=== PATIENT | male | born 1945 | race Caucasian/White ===

== ENCOUNTER 2020-06-24 11:06 | Inpatient (IN) ==
--- NOTE | 2020-06-23 09:15 | Anesthesiology Consultation ---
Date of Service June 23, 2020 Assessment & Plan (1) Encounter for pre-operative examination: Chart Review Chart Review: Acceptable Risk for Surgery and Patient NOT seen in Pre Admission Testing - Check BSG AM DOS Pt initially seen in [facility] on 05/19/20- surgery rescheduled secondary to Covid surge. Per nursing assessment 06/23/2020, patient denies any recent travel. No known Covid infection in the past 90 days. No known Covid positive contacts or Covid related symptoms. Preop Covid testing 06/17/2020 = negative History Surgery Operation Date: 06/24/20 12:25 Proposed Procedures p L4-S1 Decompression and Fusion, Possible L3-L4, Spinal Cord Monitoring - Gr vasquez Andujar, Height/Weight Height: 5 ft 9 in Weight: 92.533 kg Allergies Allergy/AdvReac Type Severity Reaction Status Date / Time erythromycin base Allergy Severe Chest Verified 06/23/20 09:03 tightness chlordiazepoxide AdvReac Mild Irritabilit Verified 06/23/20 09:03 [From Librium] y Medications Home Medications Medication Instructions Recorded Confirmed Last Taken Glutathione Otc 500 mg PO QAM 05/05/20 06/23/20 Unknown acetaminophen-codeine 1 tab PO Q6H PRN 05/05/20 06/23/20 Unknown [Tylenol-Codeine #3] aspirin [Aspir-81] 81 mg PO HS 05/05/20 06/23/20 Unknown baclofen 10 mg PO TID PRN 05/05/20 06/23/20 Unknown chlorzoxazone 500 mg PO TID PRN 05/05/20 06/23/20 Unknown lisinopril 10 mg PO QAM 05/05/20 06/23/20 Unknown metformin 750 mg PO PM 05/05/20 06/23/20 Unknown simvastatin 10 mg PO PM 05/05/20 06/23/20 Unknown vit C,L-Bg-vfijv-lutein-zeaxan 1 tab PO BID 05/05/20 06/23/20 Unknown [PreserVision AREDS-2] Chlor-Tablet 1 tab PO DAILY 05/17/20 06/23/20 Unknown Past Medical History Medical History Arthritis Chronic back pain Deviated septum Diabetes mellitus, type 2 NIDDM Hyperlipidemia Leukemia CLL (dx 2013) > stable under annual surveillance with oncology (Dr. Cline/[facility]/[place]) Trigger finger right hand Past Family History Family History Grandfather (Paternal) Family history of diabetes mellitus Past Surgical History Surgical History History of adenoidectomy History of colonoscopy History of hand surgery Right History of herniorrhaphy R/L History of knee surgery R/L (ligament repair) History of nasal septoplasty History of repair of rotator cuff Left History of tonsillectomy Social History Smoking Status: Never smoker Hx Alcohol Use: Yes Alcohol type: beer, wine and hard liquor alcohol intake frequency: holidays/special occasions only Hx Substance Use: No Testing Laboratory Results Laboratory Tests 05/17/20 05/17/20 05/17/20 12:15 12:15 12:15 WBC 22.41 H Hgb 16.7 Hct 49.7 Plt Count 149 PT 10.9 INR 1.0 APTT 26.5 Sodium 138 Potassium 4.8 Chloride 105 Carbon Dioxide 27 BUN 17 Creatinine 1.10 Glucose 160 H Hemoglobin A1c 05/17/20 12:15 WBC Hgb Hct Plt Count PT INR APTT Sodium Potassium Chloride Carbon Dioxide BUN Creatinine Glucose Hemoglobin A1c 8.8 H Per anesthesia consultation from 05/17/20= "Patient with known hx of CLL- per verbal from [facility], patient's baseline WBC in the low to mid 20's since 2015. CBC report forwarded to oncology for continuity of care." 05/17/2020 = UA: Negative T&S: A+, antibody negative Electrocardiogram Date: 05/17/20 SR with first degree AVB with PAC's at 79bpm. RBBB. LAFB. *Bifascicular block* (Bifascicular block chronic dating back to at least 09/10/2011 [facility] EKG) Chest X-Ray Date: 05/17/20 FINDINGS: Cardiomediastinal and hilar silhouettes are within normal limits. Calcified plaque of the thoracic aorta. Mild interstitial coarsening of the lung bases, possibly on a chronic basis. No pneumothorax, pleural effusion, overt pulmonary edema or airspace consolidation to suggest pneumonia. Degenerative changes of the shoulders and spine. IMPRESSION: No acute process.
[~2020-06-24 11:06] MED LIST: ACETAMINOPHEN 500 MG TAB PO SCH; CeleBREX 200 MG CAP PO SCH; GABAPENTIN 300 MG CAP PO SCH; LR 15ML/HR IV SCH; ceFAZolin 2000MG 2,000 MG/15 ML SYR IV SCH
[2020-06-24] MEDS ORDERED: GLYCOPYRROLATE 0.2 MG/ML VIAL ONE (11:44)
[2020-06-24] MEDS ORDERED: ONDANSETRON INJ 2 MG/ML 2 ML VIAL ONE (11:44)
[2020-06-24] MEDS ORDERED: PROPOFOL IV EMULSION 10 MG/ML 20 ML VIAL IV ONE (11:44)
[2020-06-24] MEDS ORDERED: NEOSTIGMINE METHYLSULFATE 1 MG/ML 10ML VIAL ONE (11:44)
[2020-06-24] MEDS ORDERED: LIDOCAINE 2% 2 ML VIAL/AMP(20MG/ML) INFIL ONE (11:44)
[2020-06-24] MEDS ORDERED: DEXAMETHASONE SOD INJ 4 MG/ML VIAL ONE (11:44)
[2020-06-24] MEDS ORDERED: MIDAZOLAM HCL 1 MG/ML 2ML VIAL ONE (11:45)
[2020-06-24] MEDS ORDERED: fentaNYL citrate 100 MCG/2 ML VIAL ONE ×3 (11:45→15:28)
--- NOTE | 2020-06-24 12:01 | History & Physical Bridge Note ---
Date of Service June 24, 2020 History & Physical Bridge Note I have examined the patient, reviewed the History & Physical and in the interval since the performance of the History & Physical I have noted the following changes of clinical significance: no changes noted
--- NOTE | 2020-06-24 12:02 | History & Physical Report ---
Date of Service June 24, 2020 Assessment & Plan (1) Neurogenic claudication due to lumbar spinal stenosis: Admission and Anticipated Discharge Date Admission Date: L4-S1 decompression fusion, possible L3-L4 History of Present Illness Chief Complaint: Back and bilateral leg pain Primary Care Provider: Yan Salas This is a 75-year-old male who presents with above-mentioned diagnosis after failing course of nonoperative care is here for surgical intervention. Allergies Allergy/AdvReac Type Severity Reaction Status Date / Time erythromycin base Allergy Severe Chest Verified 06/23/20 09:03 tightness chlordiazepoxide AdvReac Mild Irritabilit Verified 06/23/20 09:03 [From Librium] y Home Medications Medication Instructions Recorded Confirmed Type Glutathione Otc 500 mg PO QAM 05/05/20 06/23/20 History acetaminophen-codeine 1 tab PO Q6H PRN 05/05/20 06/23/20 History [Tylenol-Codeine #3] aspirin [Aspir-81] 81 mg PO HS 05/05/20 06/23/20 History baclofen 10 mg PO TID PRN 05/05/20 06/23/20 History chlorzoxazone 500 mg PO TID PRN 05/05/20 06/23/20 History lisinopril 10 mg PO QAM 05/05/20 06/23/20 History metformin 750 mg PO PM 05/05/20 06/23/20 History simvastatin 10 mg PO PM 05/05/20 06/23/20 History vit C,N-Ta-idqmv-lutein-zeaxan 1 tab PO BID 05/05/20 06/23/20 History [PreserVision AREDS-2] Chlor-Tablet 1 tab PO DAILY 05/17/20 06/23/20 History Past Med/Surg History Medical History Arthritis Chronic back pain Deviated septum Diabetes mellitus, type 2 NIDDM Hyperlipidemia Leukemia CLL (dx 2012) > stable under annual surveillance with oncology (Dr. Cline/[facility]) Trigger finger right hand Surgical History History of adenoidectomy History of colonoscopy History of hand surgery Right History of herniorrhaphy R/L History of knee surgery R/L (ligament repair) History of nasal septoplasty History of repair of rotator cuff Left History of tonsillectomy Family History Grandfather (Paternal) Family history of diabetes mellitus Social History Smoking Status: Never smoker Second Hand Exposure: Yes (PARENTS SMOKED/AT WORK (PAST EXPOSURE)); Hx Alcohol Use: Yes Alcohol type: beer, wine and hard liquor Hx Substance Use: No Preferred Language: Syrian Communication Ability: Effective Graduate Research Assistant Required: No Beliefs That Will Affect Care: None Current Living Situation: Spouse Feels Safe at Home: Yes Safety Concerns: Feels Safe At This Time Assistive Devices: Glasses Physical Exam Physical Exam: Patient is alert and oriented Heart regular rate and rhythm Lungs clear to auscultation
[2020-06-24] MEDS ORDERED: BUPIVACAINE/EPINEPHRINE 0.5% MPF 1:200,000 30 ML VIAL ONE (12:20)
[2020-06-24] MEDS ORDERED: BACITRACIN INJ 50,000 UNIT VIAL ONE (12:20)
[2020-06-24] MEDS ORDERED: fentaNYL citrate 100 MCG/2 ML VIAL IV PRN (12:59)
[2020-06-24] MEDS ORDERED: ATROPINE SULFATE 0.1 MG/ML 10ML SYR IV PRN (12:59)
[2020-06-24] MEDS ORDERED: ePHEDrine sulfate 50 MG/ML AMP IV PRN (12:59)
[2020-06-24] MEDS ORDERED: ONDANSETRON INJ 2 MG/ML 2 ML VIAL IV PRN ×2 (12:59→16:52)
[2020-06-24] MEDS ORDERED: ROCURONIUM BROMIDE 10 MG/ML 5 ML VIAL IV ONE ×4 (14:27)
[2020-06-24] MEDS ORDERED: FLOSEAL HEMOSTATIC MATRIX 10ML TOP ONE (14:50)
--- NOTE | 2020-06-24 15:32 | Operative Report ---
Post Operative Report Pre & Post Diagnosis Operation Date: 06/24/20 12:25 Pre-Op Diagnosis: Spinal Stenosis, Lumbar Region with Neurogenic Post-Op Diagnosis: Spinal Stenosis, Lumbar Region with Neurogenic I identified the patient and participated in the time-out.: Yes Procedure Operation Date: 06/24/20 12:25 Actual Procedures #1 Lumbar decompression with bilateral medial facetectomies and foraminotomies L3-4, L4-5 and L5-S1. #2 posterior spinal fusion L3-4, L4-5 and L5-S1. #3 patient posterior instrumentation L4-5 and L5-S1. #4 interbody fusion L4-5 and L5-S1. #5 placement peek cage 13 x 26 mm at L4-5 and 12 x 26 mm at L5-S1 peer #6 placement locally harvested morselized autograft in the posterior gutters per #7 placement use collagen sponge, master graft in the posterior lateral gutters and ostial amp interbody space. Surgeon Corona Andujar, DO Horticultural Technical Officer Mike Snow Estimated Blood Loss 250 Findings See Below Patient is 5 foot 9 inches tall weighing over 95 kg with a BMI in excess of 31. The patient's body habitus did add significant technical difficulty requiring her deepest retractors longus instruments in order to perform his procedure. This had at least 50% increase to the operative time. Specimens None Indications This is a 75-year-old male who presents above-mentioned diagnosis after failing course of nonoperative care is here for the above-mentioned procedure. Description of Procedure Patient was met with identified informed consent obtained. Patient was then taken to the operative suite underwent a patient placed in a prone position Guevara table top Alfa frame. All bony prominences well-padded eyes inspected to ensure no external pressure placed upon the. This point the lumbar spine was prepped and draped in a sterile fashion. Sharp dissection with the assistance of Bovie cautery was formed down to and exposing the lamina and transverse processes of L3-L4-L5 and sacral ala bilaterally. From caudal to cephalad fashion complete laminectomy L5 L4 and L3 was performed including bilateral medial facetectomies and foraminotomies addressing severe spinal stenosis. Pedicle screws were then placed in L4-L5 and the S1 levels bilaterally with assistance of fluoroscopy and appropriate sized floridalma placed. By way of a transfemoral approach on the left complete discectomy of L5-S1 was performed endplates curetted to subcortical bleeding bone and a 12 x 26 mm peek cage filled with osteobone graft tapped in position. Then proceeded L4 and L5. Again by way of a transforaminal approach and left complete discectomy performed endplates curetted to subcortical being bone and a 13 x 26 mm peek cage filled osteobone graft tapped in position. The rods were then locked in final position bilaterally. The transverse processes of L4-L5 and sacral ala were then burred to subcortical bleeding bone. Infuse collagen sponge master graft local autograft was placed in the posterior gutters. 15 round KYLEE drain inserted. The incision was then closed with 1 Vicryl the fascia 2-0 Vicryl subcutaneously and 4 Monocryl for final skin closure. Steri-Strip sterile dressings placed. Patient will continue PACU stable condition. Please note spinal cord monitoring was utilized at the procedure no changes noted. Coral Snow was present throughout the entire procedure involved the patient positioning complex portions of the surgery and final skin closure. I attest to the content of the Intraoperative Record and any orders documented therein. Any exceptions are noted below.
--- NOTE | 2020-06-24 15:36 | Fluoroscopy Report ---
FL lumbar spine 2-3V CLINICAL HISTORY: L4-S1 PSF, COMPARISON STUDY: FLUOROSCOPY TIME: 25 seconds. NUMBER OF FLUOROSCOPIC IMAGES: 4 FINDINGS: 4 intraoperative fluoroscopic spot images reveal postsurgical changes of an L4-5 and L5-S1 discectomies interbody fusion with posterior pedicle screw fixation. IMPRESSION: Fluoroscopic spot images demonstrating an L4-S1 spinal decompression and fusion. ACT 112: Negative or not required by law. Electronically signed by: Maximiliano Ellsworth M.D. 06/24/2020 3:35 PM
--- NOTE | 2020-06-24 16:42 | Anesthesiology Progress Note ---
Date of Service June 24, 2020 Anesthesia Post Procedure Vital Signs Vital Signs: Temp Pulse Pulse Resp BP BP Pulse Ox 06/24/20 16:35 97.5 F L 79 16 152/89 H 93 06/24/20 16:25 97.5 F L 78 16 144/97 H 94 06/24/20 16:15 76 17 144/97 H 95 06/24/20 16:05 77 25 H 145/84 H 94 06/24/20 15:56 97.0 F L 82 14 162/96 H 95 06/24/20 12:07 97.9 F 79 18 146/89 H 97 Transfer of Care Handoff Completed per policy Notes Mental Status: alert / awake / arousable and participated in evaluation Patient Amnestic to Procedure: Yes Nausea / Vomiting: adequately controlled Pain: adequately controlled Airway Patency, RR, SpO2: stable & adequate BP & HR: stable & adequate Hydration State: stable & adequate Anesthetic Complications: no major complications apparent and Pt Satisfied with anesthetic care
[2020-06-24] MEDS ORDERED: DO NOT ADMINISTER FLU VACCINE PRN (16:52)
[2020-06-24] MEDS ORDERED: FAMOTIDINE 20 MG TAB PO PRN (16:52)
[2020-06-24] MEDS ORDERED: oxyCODONE HCL IR 5 MG TAB (IMMEDIATE RELEASE) PO PRN (16:52)
[2020-06-24] MEDS ORDERED: MAGNESIUM HYDROXIDE SUSP 30 ML UDC PO PRN (16:52)
[2020-06-24] MEDS ORDERED: PROMETHAZINE HCL 12.5 MG in SODIUM CHLORIDE 0.9% 50 ML IV PRN (16:52)
[2020-06-24] MEDS ORDERED: diphenhydrAMINE Capsule 25 MG CAP PO PRN (16:52)
[2020-06-24] MEDS ORDERED: hydrOXYzine HCl 25 MG TAB PO PRN (16:52)
[2020-06-24] MEDS ORDERED: ALUMINUM/MAGNESIUM SUSP 30 ML UDC PO PRN (16:52)
[2020-06-24] MEDS ORDERED: NALOXONE HCL 0.4 MG/1 ML VIAL/CARP IV PRN (16:52)
[2020-06-24] MEDS ORDERED: ACETAMINOPHEN 1,000 MG/100 ML VIAL IV PRN (16:52)
[2020-06-24] MEDS ORDERED: HYDROmorphone INJ 1 MG/ML SYRINGE IV PRN (16:52)
[2020-06-24] MEDS ORDERED: CHLORZOXAZONE 500 MG TAB PO PRN (16:52)
[2020-06-24] MEDS ORDERED: ONDANSETRON 4 MG OD TAB PO PRN (16:52)
[2020-06-24] MEDS ORDERED: LORazepam 0.5 MG/1 ML VIAL IV PRN (16:52)
[2020-06-24] MEDS ORDERED: HYDROmorphone INJ 0.5 MG/0.5 ML SYR IV PRN (16:52)
[2020-06-24] MEDS ORDERED: SOD PHOSPHATE/SOD BIPHOSPHATE ENEMA 132 ML BTL PR PRN (16:52)
[2020-06-24] MEDS ORDERED: LORazepam 0.5 MG TAB PO PRN (16:52)
[2020-06-24] MEDS ORDERED: DO NOT ADMINISTER PNEUMOCOCCAL VACCINE PRN (16:52)
[2020-06-24] MEDS ORDERED: METOCLOPRAMIDE HCL INJ 5 MG/ML 2 ML VIAL IV PRN (16:52)
[2020-06-24] MEDS: SODIUM CHLORIDE 0.9% 1000ML 1,000 ML IV SCH (17:08)
[2020-06-24] MEDS ORDERED: GLUCOSE 40% GEL 15 GM TUBE PO PRN (17:15)
[2020-06-24] MEDS ORDERED: GLUCOSE 10 TABS/TUBE PO PRN (17:15)
[2020-06-24] MEDS ORDERED: CARBOHYDRATES FOR HYPOGLYCEMIA PO PRN (17:15)
[2020-06-24] MEDS ORDERED: GLUCAGON FOR INJ 1 MG VIAL IM PRN (17:15)
[2020-06-24] MEDS ORDERED: DEXTROSE 50% 50 ML SYRINGE IV PRN (17:15)
[2020-06-24] MEDS ORDERED: PHARMACY GLYCEMIC MGMT CONSULT PRN (17:28)
[2020-06-24] MEDS ORDERED: INSULIN GLARGINE SOLOSTAR 100 UNITS/ML 3 ML PEN SC ONE ×2 (17:30→22:00)
[2020-06-24] MEDS: INSULIN ASPART 100 UNITS/ML 3 ML PEN SC SCH ×2 (17:34→21:05)
--- NOTE | 2020-06-24 18:03 | Hospitalist Consultation ---
Date of Consultation June 24, 2020 Assessment & Plan (1) Neurogenic claudication due to lumbar spinal stenosis: - POD#0 L3-L4, L4-L5, L5-S1 decompression and fusion by Dr. Andujar - activity and wound care orders as per ortho - pain control with bowel regimen - PT/OT - monitor H/H for acute blood loss anemia and transfuse blood products PRN -EBL 250 cc (2) Diabetes mellitus, type 2: -Hgb A1c 8.8 04/2020 -Managed on Metformin at home -Glycemic pharmacy consult placed by spine orthopedics (3) HTN (hypertension): -BP controlled, continue lisinopril (4) CLL (chronic lymphocytic leukemia): -Stable, WBC 22K 04/2020 -Monitor CBC (5) DVT prophylaxis: -TEDs/SCDs as per spine orthopedics Thank you for this consultation. We will follow the patient with you during their hospital stay. You can reach a member of the [facility] Hospitalist Team 19/11 via pager @ [phone]. Supervising Physician Co-Signing Physician Notes Attending addendum: The patient was seen and examined in medical floor He is a status post L4-S1 decompression and fusion Denies any symptoms following surgery Remains hemodynamically stable On examination No apparent distress at rest Chestclear to auscultate bilaterally HeartS1-S2 regular, no murmur Abdomenbenign, bowel sounds present CNSalert, awake and oriented x3. No focal sensory and motor deficit appreciated Extremitiesno edema Is labs, imaging studies and EKG reviewed Is a status post L5-S1 decompression fusionmanagement as per surgery His medical condition including diabetes type 2, hypertension and CLL remains stable Agree with assessment and plan as outlined above by Augusta Fernando History of Present Illness Reason for Consultation: Postop medical management Requesting Physician: Dr. Andujar Attending Physician: Dr. Fernando History of Present Illness 75-year-old male with PMH HTN, NIDDM, CLL, dyslipidemia, and other problems listed below who is status post L3-L4, L4-L5, L5-S1 decompression and fusion today by Dr. Andujar. Postoperatively, the patient is doing well. He reports his pain is well controlled. Denies numbness, tingling, weakness to lower extremities. No chest pain or shortness of breath. Denies lightheadedness and dizziness. No abdominal pain or nausea. Solomon catheter is in place draining clear yellow urine. Allergies Allergy/AdvReac Type Severity Reaction Status Date / Time erythromycin base Allergy Severe Chest Verified 06/24/20 12:06 tightness chlordiazepoxide AdvReac Mild Irritabilit Verified 06/24/20 12:06 [From Librium] y Home Medications Medication Instructions Recorded Confirmed Type Glutathione Otc 500 mg PO QAM 05/05/20 06/24/20 History acetaminophen-codeine 1 tab PO Q6H PRN 05/05/20 06/24/20 History [Tylenol-Codeine #3] aspirin [Aspir-81] 81 mg PO HS 05/05/20 06/24/20 History chlorzoxazone 500 mg PO TID PRN 05/05/20 06/24/20 History lisinopril 10 mg PO QAM 05/05/20 06/24/20 History metformin 750 mg PO PM 05/05/20 06/24/20 History simvastatin 10 mg PO PM 05/05/20 06/24/20 History vit C,T-Zb-pvqby-lutein-zeaxan 1 tab PO BID 05/05/20 06/24/20 History [PreserVision AREDS-2] Chlor-Tablet 1 tab PO DAILY 05/17/20 06/24/20 History Patient History Medical History Arthritis Chronic back pain Deviated septum Diabetes mellitus, type 2 NIDDM Dyslipidemia HTN (hypertension) Hyperlipidemia Leukemia CLL (dx 2012) > stable under annual surveillance with oncology (Dr. Cline/[facility]/[place]) Trigger finger right hand Surgical History History of adenoidectomy History of colonoscopy History of hand surgery Right History of herniorrhaphy R/L History of knee surgery R/L (ligament repair) History of nasal septoplasty History of repair of rotator cuff Left History of tonsillectomy Family History Grandfather (Paternal) Family history of diabetes mellitus Social History Smoking Status: Never smoker Second Hand Exposure: Yes (PARENTS SMOKED/AT WORK (PAST EXPOSURE)); Hx Alcohol Use: Yes Alcohol type: beer, wine and hard liquor Hx Substance Use: No Preferred Language: Czech Communication Ability: Effective Paper Sales Representative Required: No Beliefs That Will Affect Care: None Current Living Situation: Spouse Feels Safe at Home: Yes Safety Concerns: Feels Safe At This Time Assistive Devices: Glasses and Walker Review of Systems Review of Systems: ROS per HPI, all other systems reviewed and negative Physical Exam Constitutional: WD/WN, vitals as above Eyes: PERRL, conjunctivae normal, anicteric sclerae ENMT: external ear and nose normal, oropharynx normal Respiratory: normal respiratory effort, lungs clear to auscultation Cardiovascular: Rate/Rhythm: regular rate and regular rhythm Vessels: normal peripheral pulses Extremities: no edema Gastrointestinal (Abdomen): normal bowel sounds, soft, nontender, no hepatosplenomegaly Musculoskeletal: no cyanosis or clubbing, extremities motor strength 5/5 S/p back surgery, drain in place draining bloody drainage, pedal pushes and pulls strong bilaterally Skin: no rashes, warm and dry Neurologic: PERRL, EOMI, accommodation nl, no face palsy, no dysarthria Psychiatric: A+Ox3, euthymic affect Genitourinary: Solomon catheter in place draining clear yellow urine Results & Data Results & Data ([facility]) Vital Signs (Past 12 Hours) Vital Signs Temp Pulse Pulse Resp BP BP Pulse Ox 06/24/20 17:58 36.7 C 81 17 124/78 93 06/24/20 17:25 73 16 140/99 92 06/24/20 16:55 36.7 C 78 16 143/83 H 91 06/24/20 16:45 36.4 C L 77 17 127/78 93 06/24/20 16:35 36.4 C L 79 16 152/89 H 93 06/24/20 16:25 36.4 C L 78 16 144/97 H 94 06/24/20 16:15 76 17 144/97 H 95 06/24/20 16:05 77 25 H 145/84 H 94 06/24/20 15:56 36.1 C L 82 14 162/96 H 95 06/24/20 12:07 36.6 C 79 18 146/89 H 97
[2020-06-24] MEDS: CEROVITE ADV FORMULA TAB PO SCH (20:58)
[2020-06-24] MEDS: SIMVASTATIN 10 MG TAB PO SCH (20:58)
[2020-06-24] MEDS: ASPIRIN 81 MG ECTAB PO SCH (20:58)
[2020-06-24] MEDS: DOCUSATE SODIUM/SENNA 50/8.6MG TAB PO SCH (20:58)
[2020-06-24] MEDS: ceFAZolin 2000MG 2,000 MG/15 ML SYR IV SCH (21:07)
[2020-06-25] MEDS: INSULIN ASPART 100 UNITS/ML 3 ML PEN SC SCH ×6 (00:07→20:52)
[2020-06-25] MEDS: ceFAZolin 2000MG 2,000 MG/15 ML SYR IV SCH (04:23)
[2020-06-25] MEDS: SODIUM CHLORIDE 0.9% 1000ML 1,000 ML IV SCH (04:25)
[2020-06-25 06:56] LABS: Hematocrit (blood only) 43.4 % (42-52); Hemoglobin 14.6 g/dL (14.0-18.0); Mean Corpuscular Hemoglobin 28.5 pg (25-34); Mean Corpuscular Hgb Conc 33.6 g/dL (32-36); Mean Corpuscular Volume 84.6 fL (80-100); Mean Platelet Volume 10.8 fL (7.4-10.4); Platelet Count 207 K/uL (130-400); RDW Coefficient of Variation 14.4 % (11.5-14.5); RDW Standard Deviation 44.2 fL (36.4-46.3); Red Blood Count 5.13 M/uL (4.7-6.1); White Blood Count 39.84 K/uL (4.8-10.8)
[2020-06-25] MEDS ORDERED: SODIUM CHLORIDE 0.65% NA SOLN 45 ML (OCEAN) PRN (07:06)
[2020-06-25 07:29] LABS: BUN Creatinine Ratio 10.1 (10-20); Calcium 8.8 mg/dl (8.5-10.1); Creatinine Clr Calc Pharmacy 55.6 ml/min; Est GFR (African American) 60.6; Est GFR (Non-African American) 52.3; Potassium 4.1 mmol/L (3.5-5.1)
[2020-06-25 07:30] LABS: Basophils # (auto) 0.04 K/uL (0-0.2); Basophils % (auto) 0.1 %; Immature Granulocytes # (auto) 0.13 K/uL (0.00-0.02); Immature Granulocytes % (auto) 0.3 %; Lymphocytes # (auto) 27.72 K/uL (1.2-3.4); Lymphocytes % (auto) 69.6 %; Monocytes # (auto) 1.57 K/uL (0.11-0.59); Monocytes % (auto) 3.9 %; Neutrophils # (auto) 10.38 K/uL (1.4-6.5); Neutrophils % (auto) 26.1 %; Smudge Cells Present
[2020-06-25] MEDS: ACETAMINOPHEN 500 MG TAB PO PRN ×2 (07:58→17:13)
[2020-06-25] MEDS: CEROVITE ADV FORMULA TAB PO SCH ×2 (07:58→20:22)
[2020-06-25] MEDS: lisinopril 10 MG TAB PO SCH (07:59)
[2020-06-25] MEDS: INSULIN GLARGINE SOLOSTAR 100 UNITS/ML 3 ML PEN SC SCH ×2 (08:29→20:51)
[2020-06-25] MEDS ORDERED: CHLOR PO SCH (09:00)
--- NOTE | 2020-06-25 09:41 | Pharmacy Report ---
Pharmacy Glycemic Short Note 2 - Date of Service June 25, 2020 - Glycemic Short BSG Results (Last 24 hours): 06/24/20 06/24/20 06/24/20 11:34 15:57 17:06 Glucose POC Glucose 154 H 191 H 241 H 06/25/20 06/25/20 06/25/20 00:05 04:00 06:34 Glucose 191 H POC Glucose 303 H* 212 H 06/25/20 08:05 Glucose POC Glucose 182 H OUTPATIENT ANTIDIABETIC REGIMEN: * Metformin ER 750 mg PO HS * HbA1c = 8.8% (05/17/20) ASSESSMENT: * 75 yo M admitted yesterday following a L4-S1 spinal decompression and fusion. Pharmacy was consulted postoperatively for glycemic management assistance. * Preoperative BSG was 154 mg/dL. Postoperative BSG was 241 mg/dL. * Patient did receive 8 mg IV Dexamethasone intraoperatively. There are no further steroid orders to my knowledge. * Lantus 25 units was given last evening postoperatively. BSG at bedtime went up to 248 mg/dL so patient was given another 10 units of Lantus. * Overnight, BSGs were 303-212 mg/dL. Fasting BSG this morning was 182 mg/dL, which is above goal range. * Will order Lantus based on a weight/stress of two for this morning. * Believe patient's insulin requirements will decrease throughout the day as steroids continue to wear off. If further steroid orders are entered by provider, will likely require more Lantus. * Continue with Novolog based on weight/stress of three to account for steroid induced hyperglycemia. Again, these parameters may need adjusted if patient is ordered further steroids by provider. PLAN FOR INPATIENT GLYCEMIC CONTROL: * Hold outpatient oral diabetes medications * Basal insulin * Lantus 35 units SQ (last evening) * Lantus 15 units SQ BID (starting this morning) * Bolus insulin * NovoLog per scale ACHS or Q6hrs while NPO * Goal Range: Low 110 mg/dL - High 140 mg/dL * Correction Factor: 15 mg/dL/unit * Nutritional / Prandial insulin per carb ratio of 1 unit per 6 grams CHO consumed PLAN FOR DISCHARGE: * HbA1c = 8.8% from April 2020. This is not at goal. Goal HbA1c based on this patient's age and comorbidities would be less than 8%. * Patient's Metformin was increased to 750 mg at bedtime in January 2020. * Recommend increasing Metformin ER to 1000 mg PO HS at discharge. Continue to titrate metformin dosing upwards as recommended. Dosage increases should be made in increments of 500 mg weekly, up to 2,000 mg/day PO, given in divided doses. Doses above 2000 mg/day may be better tolerated if divided and given 3 times per day with meals. Max: 2,550 mg/day PO, in divided doses. B12 supplementation may be necessary with terminal computer operator metformin.
[2020-06-25] MEDS: traMADol HCL 50 MG TABLET PO PRN ×2 (10:47→20:24)
--- NOTE | 2020-06-25 11:05 | Orthopedic Progress Note ---
Date of Service June 25, 2020 Assessment & Plan (1) Neurogenic claudication due to lumbar spinal stenosis: Admission and Anticipated Discharge Date Admission Date: June 24, 2020 At this time continue physical therapy monitor his KYLEE output anticipate disc harge home with home health Saturday Subjective Back pain controlled leg symptoms markedly improved. Physical Exam Physical Exam: Patient is good strength testing appears comfortable. Results & Data ([facility]) Vital Signs (Past 12 Hours) Vital Signs Temp Pulse Resp BP Pulse Ox 06/25/20 07:42 37.5 C 92 H 18 103/70 96 06/25/20 03:58 36.7 C 95 H 16 95/68 L 94
--- NOTE | 2020-06-25 12:14 | Anesthesiology Progress Note ---
Date of Service June 25, 2020 Anesthesia Post Procedure Vital Signs Vital Signs: Temp Pulse Pulse Resp BP BP Pulse Ox 06/25/20 07:42 37.5 C 92 H 18 103/70 96 06/25/20 03:58 36.7 C 95 H 16 95/68 L 94 06/24/20 22:14 36.6 C 95 H 14 132/83 95 06/24/20 19:55 36.5 C 88 14 127/79 93 06/24/20 18:49 36.5 C 78 17 134/79 92 06/24/20 17:58 36.7 C 81 17 124/78 93 06/24/20 17:25 73 16 140/99 92 06/24/20 16:55 36.7 C 78 16 143/83 H 91 06/24/20 16:45 36.4 C L 77 17 127/78 93 06/24/20 16:35 36.4 C L 79 16 152/89 H 93 06/24/20 16:25 36.4 C L 78 16 144/97 H 94 06/24/20 16:15 76 17 144/97 H 95 06/24/20 16:05 77 25 H 145/84 H 94 06/24/20 15:56 36.1 C L 82 14 162/96 H 95 Notes Mental Status: alert / awake / arousable Patient Amnestic to Procedure: Yes Nausea / Vomiting: adequately controlled Pain: adequately controlled Airway Patency, RR, SpO2: stable & adequate BP & HR: stable & adequate Hydration State: stable & adequate Anesthetic Complications: no major complications apparent and Pt Satisfied with anesthetic care
[2020-06-25] MEDS: POLYETHYLENE (MIRALAX) 17 GM PACK PO SCH ×3 (12:55→22:44)
--- NOTE | 2020-06-25 16:12 | Hospitalist Progress Note ---
Date of Service June 25, 2020 Assessment & Plan (1) Neurogenic claudication due to lumbar spinal stenosis: S/P L3-L4, L4-L5, L5-S1 decompression and fusion performed by Dr. Andujar on 06/24/20 No postop complication Continue pain control Continue physical and occupational therapy Fall precaution Continue incentive spirometry Monitor H/H (2) Diabetes mellitus, type 2: Hgb A1c 8.8 04/2020 Managed on Metformin at home that is on hold Pharmacy on board for glycemic management Continue monitor BS (3) HTN (hypertension): Continue lisinopril BP stable (4) CLL (chronic lymphocytic leukemia): WBC 39K today Continue monitor CBC (5) DVT prophylaxis: TEDs/SCDs as per spine orthopedics CODE status Full code Disposition as per ortho Thank you for this consultation. We will follow the patient with you during their hospital stay. You can reach a member of the [facility] Hospitalist Team 19/11 via pager @ [phone]. Admission and Anticipated Discharge Date Admission Date: June 24, 2020 Subjective Pt was seen and examined for postop follow up Lying in bed with no distress watching TV Pt said that pain is control He said that he walked in the hallway with therapy and tolerated well Denies any chest pain, palpitation, dizziness and SOB Physical Exam Physical Exam: General- No acute distress Head- atraumatic Eyes- PERRL, EOMI, ENT- oropharynx clear Neck- supple, no JVD Lungs- clear to auscultation Heart- regular rhythm; no murmur Abdomen- normal bowel sounds, soft, nontender Extremities- no calf tenderness Neuro- alert, oriented x 3; PERRL, EOMI; no facial palsy; no dysarthria Skin- warm & dry Results & Data Results & Data ([facility]) Vital Signs (Past 12 Hours) Vital Signs Temp Pulse Resp BP Pulse Ox 06/25/20 15:06 37.1 C 103 H 16 116/70 90 06/25/20 07:42 37.5 C 92 H 18 103/70 96
[2020-06-25] MEDS: ASPIRIN 81 MG ECTAB PO SCH (20:21)
[2020-06-25] MEDS: SIMVASTATIN 10 MG TAB PO SCH (20:21)
[2020-06-25] MEDS: DOCUSATE SODIUM/SENNA 50/8.6MG TAB PO SCH (20:22)
[2020-06-25] MEDS ORDERED: INSULIN GLARGINE SOLOSTAR 100 UNITS/ML 3 ML PEN SC ONE (21:45)
[2020-06-25] MEDS ORDERED: CETIRIZINE HCL 10 MG TABLET PO ONE (22:11)
[2020-06-26] MEDS: POLYETHYLENE (MIRALAX) 17 GM PACK PO SCH ×2 (05:59→12:48)
[2020-06-26] MEDS: traMADol HCL 50 MG TABLET PO PRN (06:03)
[2020-06-26 06:31] LABS: Hematocrit (blood only) 37.5 % (42-52); Hemoglobin 12.4 g/dL (14.0-18.0); Mean Corpuscular Hemoglobin 28.1 pg (25-34); Mean Corpuscular Hgb Conc 33.1 g/dL (32-36); Mean Platelet Volume 11.1 fL (7.4-10.4); Platelet Count 152 K/uL (130-400); RDW Standard Deviation 46.4 fL (36.4-46.3); Red Blood Count 4.41 M/uL (4.7-6.1); White Blood Count 23.33 K/uL (4.8-10.8)
[2020-06-26] MEDS: CEROVITE ADV FORMULA TAB PO SCH (08:13)
[2020-06-26] MEDS: lisinopril 10 MG TAB PO SCH (08:13)
[2020-06-26] MEDS: INSULIN ASPART 100 UNITS/ML 3 ML PEN SC SCH ×2 (08:21→12:49)
[2020-06-26] MEDS ORDERED: INSULIN GLARGINE SOLOSTAR 100 UNITS/ML 3 ML PEN SC SCH (09:00)
[2020-06-26] MEDS ORDERED: dexAMETHasone 8 MG in SYRINGE 0 ML IV SCH (09:00)
[2020-06-26] MEDS ORDERED: NovoLIN-N (NPH) PER UNIT CHARGE SQ ONE (09:00)
--- NOTE | 2020-06-26 09:56 | Pharmacy Report ---
Pharmacy Glycemic Short Note 2 - Date of Service June 26, 2020 - Glycemic Short BSG Results (Last 24 hours): OUTPATIENT ANTIDIABETIC REGIMEN: * Metformin ER 750 mg PO HS * HbA1c = 8.8% (05/17/20) ASSESSMENT: 06/26: * Mr. Smith received a total of 75 units of insulin yesterday * 35 units basal + 40 units bolus * BSGs were above goal yesterday: [phone] mg/dL * Fasting BSG was elevated at 197 mg/dL today - trending upwards * Given worsening fasting BSG, will increase basal insulin dose today by ~40% * Patient is scheduled to receive 8 mg of IV Dexamethasone daily starting this morning * Will give 30 units of NPH (~0.3 units/kg) to cover for steroid-induced hyperglycemia while on Dexamethasone * Postprandial BSGs have not been improving * Will tighten CF/CR further today 06/25: * 75 yo M admitted yesterday following a L4-S1 spinal decompression and fusion. Pharmacy was consulted postoperatively for glycemic management assistance. * Preoperative BSG was 154 mg/dL. Postoperative BSG was 241 mg/dL. * Patient did receive 8 mg IV Dexamethasone intraoperatively. There are no further steroid orders to my knowledge. * Lantus 25 units was given last evening postoperatively. BSG at bedtime went up to 248 mg/dL so patient was given another 10 units of Lantus. * Overnight, BSGs were 303-212 mg/dL. Fasting BSG this morning was 182 mg/dL, which is above goal range. * Will order Lantus based on a weight/stress of two for this morning. * Believe patient's insulin requirements will decrease throughout the day as steroids continue to wear off. If further steroid orders are entered by provider, will likely require more Lantus. * Continue with Novolog based on weight/stress of three to account for steroid induced hyperglycemia. Again, these parameters may need adjusted if patient is ordered further steroids by provider. PLAN FOR INPATIENT GLYCEMIC CONTROL: * Hold outpatient oral diabetes medications * Basal insulin - increased Lantus and added NPH * Lantus 25 units SQ BID * NPH 30 units SQ daily with dexamethasone - If dexamethasone held/discontinued, please call glycemic pharmacist and hold NPH dose * Bolus insulin - tightened CF/CR * NovoLog per scale ACHS or Q6hrs while NPO * Goal Range: Low 110 mg/dL - High 140 mg/dL * Correction Factor: 12 mg/dL/unit * Nutritional / Prandial insulin per carb ratio of 1 unit per 4 grams CHO consumed PLAN FOR DISCHARGE: * HbA1c = 8.8% from April 2020. This is not at goal. Goal HbA1c based on this patient's age and comorbidities would be less than 8%. * Patient's Metformin was increased to 750 mg at bedtime in January 2020. * Recommend increasing Metformin ER to 1000 mg PO HS at discharge. Continue to titrate metformin dosing upwards as recommended. Dosage increases should be made in increments of 500 mg weekly, up to 2,000 mg/day PO, given in divided doses. Doses above 2000 mg/day may be better tolerated if divided and given 3 times per day with meals. Max: 2,550 mg/day PO, in divided doses. B12 supplementation may be necessary with terminal operator metformin.
--- NOTE | 2020-06-26 11:36 | Hospitalist Progress Note ---
Date of Service June 26, 2020 Assessment & Plan (1) Neurogenic claudication due to lumbar spinal stenosis: S/P L3-L4, L4-L5, L5-S1 decompression and fusion performed by Dr. Andujar on 06/24/20 No postop complication Continue pain control Continue physical and occupational therapy Fall precaution Hgb stable Continue incentive spirometry Monitor H/H (2) Diabetes mellitus, type 2: Hgb A1c 8.8 04/2020 Managed on Metformin at home that is on hold Pharmacy on board for glycemic management Continue monitor BS (3) HTN (hypertension): Continue lisinopril BP stable (4) CLL (chronic lymphocytic leukemia): WBC 23K today Continue monitor CBC (5) DVT prophylaxis: TEDs/SCDs as per spine orthopedics CODE status Full code Disposition as per ortho Thank you for this consultation. We will follow the patient with you during their hospital stay. You can reach a member [facility] via pager @ [phone]. Admission and Anticipated Discharge Date Admission Date: June 24, 2020 Subjective Pt was seen and examined for postop follow up Lying in bed with no distress watching TV Pt said that he feels fine Continue to walk in the hallway with therapy and tolerated well Denies any chest pain, palpitation, dizziness and SOB Physical Exam Physical Exam: General- No acute distress Head- atraumatic Eyes- PERRL, EOMI, ENT- oropharynx clear Neck- supple, no JVD Lungs- clear to auscultation Heart- regular rhythm; no murmur Abdomen- normal bowel sounds, soft, nontender Extremities- no calf tenderness Neuro- alert, oriented x 3; PERRL, EOMI; no facial palsy; no dysarthria Skin- warm & dry Results & Data Results & Data ([facility]) Vital Signs (Past 12 Hours) Vital Signs Temp Pulse Resp BP Pulse Ox 06/26/20 06:32 36.9 C 71 16 102/68 91
--- NOTE | 2020-06-26 11:38 | Discharge Summary ---
Date of Service June 26, 2020 Principal Diagnosis Lumbar spinal stenosis with neurogenic claudication Discharge Data Allergies Allergy/AdvReac Type Severity Reaction Status Date / Time erythromycin base Allergy Severe Chest Verified 06/24/20 12:06 tightness chlordiazepoxide AdvReac Mild Irritabilit Verified 06/24/20 12:06 [From Librium] y Consultations 06/24/20 16:52 Consult Case Management - Discharge Planning Routine Consult Hospitalist Routine Procedures Performed Operation Date: 06/24/20 12:25 Actual Procedures p L4-S1 Decompression and Fusion, Spinal Cord Monitoring, Interbody Fusion at L4-L5, L5-S1, Application of Bone Morphogenetic Protein and Allograft (Not Applicable) - Corona Andujar DO Ordered Studies 06/24/20 FL fluoroscopy <1hr Routine FL lumbar spine 2-3V Routine Hospital Course (1) Neurogenic claudication due to lumbar spinal stenosis: Patient with lumbar decompression fusion tolerated this well second orthopedic for postoperative. Postop day 1 is up and ambulating Tian postop day #2 leg symptoms improved. Postop day 3 pain was uncontrolled KYLEE drain decreasing probably. Subsequent discharge home. Discharge orders instructions from the chart for further review. Total Time Total Time Spent Total Time Spent (In Minutes): 20 minutes Discharge Plan Discharge Items Patient Disposition: Home - Home Health Services Reason For Visit: Spinal Stenosis, Lumbar Region without Neurogenic Discharge Diagnosis: Lumbar spinal stenosis with neurogenic claudication Activity: As commented below Non-emergency contact: Primary Care Provider Call non-emergency contact if: you have any medication questions Follow-up/Referrals: Yan Salas M.D. [Primary Care Provider] - Diet: Regular Addtl Attending Provider Instructions: ACTIVITY RECOMMENDATIONS: SELF CARE INSTRUCTIONS AFTER THORACIC/LUMBAR FUSIONS 1. You may walk to your tolerance. It is good exercise for your legs and back. Expect some back and intermittent leg aches and pains. 2. You may perform "counter-top" level activities (make a sandwich, tanner with a project, etc.). 3. No bending or lifting of more than 10 pounds or back twisting of any nature (roll like a log when turning in bed). 4. You may ride in a car for 20-30 minutes at a time. No driving until after your first visit with your doctor. 5. Frequent changes of position and restricting sitting to 30 minutes at a time will help limit the amount of back spasms and stiffness you may experience. 6. You may discontinue the use of ambulatory aids (cane, crutches, etc.) once your strength and confidence allow. 7. You may registration scheduling specialist the shower and let water strike your incision when you arrive home at least once daily. Do not take a tub bath, sit in a hot tub or go into a swimming pool until after your first recheck in the office. SPECIAL CARE INSTRUCTIONS: VERY IMPORTANT TO READ AND REVIEW A. Your surgical incision has been closed with a cosmetic suture under the skin that will dissolve in about 6 weeks. In 14 days, you can use a pair of clean scissors and cut the suture that is left outside of the skin at the ends of your incision. 1. The small skin tapes can be removed 7 days after surgery if they have not fallen off by that point. 2. You may keep the wound open to air as much as possible to promote healing after post-op day number 5 unless told otherwise by your doctor. 3. If you think the wound looks like it is becoming infected (redness or worsening drainage) and/or you are experiencing fever, chill or worsening back pain and muscle spasms, contact the office so that we may evaluate you as soon as possible. B. Complications are uncommon, but please contact us if you have any signs or symptoms of: 1. wound infection (fever higher than 102.5 degrees F, redness, separation of wound, drainage, or increasing pain from the incision) 2. blood clots in legs (pain, swelling, redness and warmth in legs) 3. urinary tract infection (fever higher than 102.5 degrees F, burning upon urination or increased frequency of urination) 4. nerve problems (inability to walk on your toes or heels, numbness, loss of bowel or bladder control) 5. any other symptoms that concern you C. Please call the office at if you have any concerns or questions about your operation or recovery. D. No smoking! Smoking drastically decreases the chance of a solid fusion. E. Do not take any anti-inflammatory medications (Indocin, Advil, Motrin, Aspirin, Naprosyn, etc.) as these may inhibit the chance of a solid fusion. Tylenol is okay to take for pain. MANAGING PAIN AFTER SPINAL SURGERY 1. Narcotic medication is intended for short-term use and will be provided for surgical pain. Surgical pain usually lasts for a period of 4-6 weeks. Narcotic medication includes Percocet, Vicodin, Darvocet, Tylenol #3 or Lortab. 2. Longer-term pain is more appropriately treated with non-narcotic medication such as Tylenol ES. 3. Muscle spasm is not appropriately treated with narcotics. Muscle relaxers such as Soma, Flexeril or Skelaxin can be used along with Tylenol ES. 4. Remember that we all live with some "aches and pains". This is not unusual or uncommon after an injury or as we get older. a. Back pain is expected and may include muscle spasms for 4 to 6 weeks after surgery. The pain should gradually improve. If the pain worsens for no apparent reason, please contact the office. b. Intermittent leg pain may also be experienced and should not be concerned about unless it worsens for no apparent reason. If so, please contact the office. 5. We will provide appropriate medication within the normal guidelines of their prescribed use. We will also be very cautious and aware of potential abuse and extended duration of patients' medication needs. a. Pain medications are for your comfort and to assist with sleep and rest so that the tissue can heal. They are not provided in order to return to normal activity and should not be used through the day. To do so or worsening pain at night can result from ongoing tissue damage and development of tolerance to the prescribed medicine. 6. Please allow 2-3 days to process refills. Prescriptions will not be mailed but must be picked up at the office. FOLLOW UP VISIT: Keep your scheduled follow-up appointment. Any questions, please call the office at . Pending Studies at Discharge: No Stand-Alone Forms: [facility], Sm[facility] Cess[facility] Medications and DC Order Prescriptions: New tramadol 50 mg tablet 50 mg PO Q6H PRN (Reason: pain, moderate) Qty: 30 RF: 0 oxycodone 5 mg tablet 5 mg PO Q6H PRN (Reason: pain, severe) Qty: 30 RF: 0 Continued simvastatin 10 mg Tablet 10 mg PO PM RF: 0 lisinopril 10 mg Tablet 10 mg PO QAM RF: 0 metformin 750 mg Tablet Extended Release 24 Hr 750 mg PO PM RF: 0 chlorzoxazone 500 mg Tablet 500 mg PO TID PRN (Reason: Muscle Spasm) RF: 0 acetaminophen-codeine 300-30 mg Tablet 1 tab PO Q6H PRN (Reason: Pain) RF: 0 aspirin 81 mg Tablet,Delayed Release (Dr/Ec) 81 mg PO HS RF: 0 PreserVision AREDS-2 [id number] Capsule 1 tab PO BID RF: 0 Glutathione Otc 500 mg PO QAM RF: 0 Chlor-Tablet 1 tab PO DAILY RF: 0 Discharge Orders: Discharge Order (Routine); Ordered 06/26/20 Ordered By: Corona Andujar Admission Data Admit Date/Time: 06/24/20 17:00 Attending Provider: Corona Andujar Admit Provider: Corona Andujar Primary Care Provider: Yan Salas Other Providers: Saumya Valerio ; Tiffany Sky
[2020-06-26] MEDS ORDERED: bisacodyL 10 MG SUPP PR PRN (15:33)
== END 2020-06-26 16:06 | disposition home health service (06) ==
LOC: ASU 11:06 → 3E 17:00